=== PATIENT | male | born 1990 | race Two or more races ===

== ENCOUNTER 2021-02-27 04:27 | Emergency (ER) | payer OTHER ==
[~2021-02-27] VITALS: Ht 177.8 cm; Wt 93.0 kg
[2021-02-27] MEDS ORDERED: EXCEDRIN (05:21)
== END 2021-02-27 11:50 | disposition home or self-care (01) ==
LOC: ER 04:27
DX: A49.3 Mycoplasma infection, unspecified site (principal); Z03.818 Encounter for observation for suspected exposure to other biological agents ruled out